=== PATIENT | male | born 2000 ===

== ENCOUNTER 2024-02-09 21:21 | Emergency (ER) | payer OTHER, SELFPAY ==
[2024-02-09 21:28] VITALS: BP 122/71
--- NOTE | 2024-02-09 22:17 | ED.GENMED ---
History of Present Illness
General
Chief Complaint: Fever
Source: patient
Exam Limitations: none
Time Seen by Provider: 02/09/24 21:56
Travel History
Have you had any contact with someone who has COVID-19?: No
Do you have any symptoms of coronavirus? Fever > 100 degrees, chills, cough, shortness of breath, sore throat, loss of taste or smell, muscle aches, or headache?: No
History of Present Illness
History of Present Illness:
This is a 23 year old male that comes in with c/o sore throat. States that he has had a sore throat for the past 2 days. State that he has felt warm and then cold but he did not take his temp. States that yesterday his mom gave him 'Taraflu' which
his mom gave him. States that it is a cough medication. States that he used Tylenol yesterday and today and just took Ibuprofen before coming to the hospital. States that he had chills yesterday and he has a headache. Denies any chest pain, SOB, abd
pain, nausea, vomiting, diarrhea, dizziness, urinary burning.
Past History
Past History
ED Past Medical History: None; Negative Asthma, HTN, Hypercholesterolemia or NIDDM
ED Past Surgical History: None
Social History
Tobacco: Non-smoker
Alcohol: None
Personal: Single
Living: with family
Review of Systems
Review of Systems
All Other Systems: ROS reviewed and negative except as documented in HPI and ROS
Constitutional: Reports other (felt hot and then cold but did not take his temp)
EENT: Reports sore throat
Respiratory: Reports no symptoms; Denies cough or trouble breathing
Cardiac: Reports no symptoms; Denies chest pain
ABD/GI: Reports no symptoms; Denies abdominal pain, nausea, vomiting or diarrhea
: Reports no symptoms; Denies dysuria, frequency or urgency
Musculoskeletal: Reports no symptoms
Skin: Reports no symptoms
Neurological: Reports headache; Denies dizzy
Psychiatric: Reports no symptoms
Phy Exam
General Physical Exam
General Presentation: no apparent distress
General age: appears stated age
General Skin: warm and dry
General Habitus: normal
General Mental: alert
General Hydration: appears well hydrated
ENT Exam
ENT Exam: TM's normal and pharyngeal erythema (Negative for any exudate)
Eye Exam
Eye Exam: EOMI
Cardiovascular Exam
Cardiovascular Exam: regular rate/rhythm, no edema, no murmur and normal peripheral pulses
Pulmonary Exam
Pulmonary Exam: lungs clear, no respiratory distress, no rales, chest non tender, no crackles, no rhonchi, no wheezing and no cough
Gastrointestinal Exam
Gastrointestinal Exam: normal bowel sounds, non tender, soft, no organomegaly, no pulsatile mass and non distended
Musculoskeletal Exam
Musculoskeletal Exam: full ROM (Patient walked back to room) and no edema
Skin Exam
Skin Exam: normal color, warm/dry, no rash and no petechia
Psychiatric Exam
Psychiatric Exam: normal mood/affect
Course
Orders/Labs/Results
Orders:
Orders
02/09/24 22:17
Dexamethasone Pf [Decadron] 10 mg PO NOW STA
02/09/24 22:19
COVID-19 Antigen Urgent
Source: Nasal Swab
Comment: ,
Monotest Urgent
02/09/24 22:23
Rapid Strep Group A Urgent
PRISCA Source: Throat/Pharynx
Specimen Description:
Date Specimen was Collected: 02/09/24
Time Specimen was Collected: 22:20
[facility] negative. COVID negative and rapid strep negative.
Vital Signs
Initial and Last Documented VS:
Initial Vital Signs
Temp Pulse Resp BP Pulse Ox
98.3 F 63 20 122/71 96
02/09/24 21:28 02/09/24 21:28 02/09/24 21:28 02/09/24 21:28 02/09/24 21:28
Last Documented Vital Signs
Temp Pulse Resp BP Pulse Ox
98.3 F 63 20 122/71 96
02/09/24 21:28 02/09/24 21:28 02/09/24 21:28 02/09/24 21:28 02/09/24 21:28
MDM/Problems Addressed
Differential Diagnosis Includes:
[facility], Strep. Viral syndrome
MDM/Problems Addressed:
This is a 23 year old male that comes in with c/o a sore throat for the past 2 days. States that he has taken Tylenol and Ibuprofen.
Will get COVID, Rapid strep, [facility].
Back into see patient. Explained that this is most likely a viral illness. Patient can gargle with warm salt water as this will kill the bacteria. Patient to use Ibuprofen 600mg every 6 hours and alternate with Tylenol for pain. Follow up with the
family doctor. Return with any concerns.
Chronic conditions affecting care:
NA
Acute Exacerbation and/or Progression of Chronic Illness:
NA
*Pulse Oximetry
Patient hypoxic: no
*EKG
Interpreted by ED Provider?: NA
Rate: EKG- N/A
*Visual Merchandising Manager Interpretation
Rate: Visual Merchandising Manager- N/A
*Critical Care Note
Total Time (30-74mins, 75-104mins- exclusive of procedures): Not Applicable
ED Attending Note
-
Portions of this chart may have been created with voice recognition software.� Occasional wrong word or��sound alike� substitutions may have occurred due to the inherent limitations of voice recognition software.
Discharge Plan
Departure
Patient Disposition: Home (Routine Discharge)
Date of Disposition: 02/09/24
Time of Disposition: 22:58
Patient with high blood pressure during this ER visit?: No
Condition: Good
Covid-19: Negative COVID-19
Discharge Problem:
Acute sore throat, Viral syndrome
Instructions: Viral Syndrome (DC), Sore Throat - Adult
Prescriptions:
No Action
No Current Medications
0
Referrals:
Radha Alex MD [Family Provider] - Call in 1-3 days for appt
Activity Restrictions/Additional Instructions:
As discussed, you are negative for COVID, [facility] and your rapid strep is negative. This is most likely a viral illness. You can gargle with warm salt water to help kill the bacteria. You may use Ibuprofen 600mg every 6 hours for pain and alternate
with Tylenol 1000mg every 6 hours. Follow up with the family doctor. IF YOU HAVE ANY OTHER CONCERNS PLEASE RETURN TO THE EMERGENCY ROOM.
Interventions
Interventions:
*Risk Screen - Suicide Last Done: 02/09/24 21:28
*General Assessment Last Done: 02/09/24 21:28
*Neglect/Abuse Screening Last Done: 02/09/24 21:28
ED- Fall Risk Assessment Last Done: 02/09/24 22:05
ED- Neurological Assessment Last Done: 02/09/24 22:05
ED-Skin Assessment Last Done: 02/09/24 22:05
Discharge Date and Time
Print Language: SLOVAK
[2024-02-09] MEDS: DECADRON 10 MG PO (22:36)
[2024-02-09 22:47] LABS: COVID-19 Antigen Negative (Negative)
[2024-02-09 22:52] LABS: Monotest Negative (Negative)
[2024-02-09 23:00] VITALS: BP 118/69
== END 2024-02-09 23:00 | disposition home or self-care (01) ==
LOC: EMR 21:21
PROVIDERS: Clinical Nurse Specialist Family Health; EMERGENCY PHYSICIAN Emergency Medicine; FAMILY PHYSICIAN Family Medicine
DX: B34.9 Viral infection, unspecified (principal); J02.9 Acute pharyngitis, unspecified; R51.9 Headache, unspecified; Z11.52 Encounter for screening for COVID-19
CPT/HCPCS: 99283; 86308; 87070; 87811; 87880

== ENCOUNTER 2024-05-13 20:53 | Emergency (ER) | payer SELFPAY ==
[2024-05-13 20:55] VITALS: BP 134/84
[2024-05-13 20:58] VITALS: BP 134/84
--- NOTE | 2024-05-13 23:24 | ED.GENMED ---
History of Present Illness
General
Chief Complaint: Skin Surface Trauma
Source: patient and spouse
Exam Limitations: none
Time Seen by Provider: 05/13/24 21:18
Nursing documentation reviewed up to this point in time: agreed with
History of Present Illness
History of Present Illness:
23-year-old male presenting to the emergency department today with concerns of a laceration to his right medial ankle region. He claims that this occurred when a mirror smashed and hit him in the ankle prior to arrival. Denies any numbness
weakness or additional concerns. Moderate bleeding from the area.
Past History
Past History
ED Past Medical History: None; Negative Asthma, HTN, Hypercholesterolemia or NIDDM
ED Past Surgical History: None
Social History
Tobacco: Non-smoker
Alcohol: None
Personal: Single
Living: with family
Review of Systems
Review of Systems
Allergies reviewed?: Yes
All Other Systems: ROS reviewed and negative except as documented in HPI and ROS
Phy Exam
Physical Exam
Physical Exam:
GENERAL: Alert , in no apparent distress
EYE: pupils equal and reactive
NECK: Supple, no significant adenopathy.
ENT: o/p clr, mmm.
CARDIAC: Regular rate and rhythm .
LUNGS: Clear breath sounds bilaterally, no acute respiratory distress, no wheezes/rales/rhonchi
ABDOMEN: Soft, without focal tenderness, no r/g, no cvat
NEUROLOGICAL: Alert and oriented, no focal neuro deficits
SKIN: X shaped laceration roughly 10 total centimeters in length. Subcutaneous in depth. No foreign body seen. Warm and dry, skin intact.
MUSCULOSKELETAL: No edema, well perfused.
PSYCH: Normal and appropriate interaction.
Course
Orders/Labs/Results
Orders:
Orders
05/13/24 23:26
Cephalexin Monohydrate [Keflex] 500 mg PO NOW STA
Tetanus/Diphth/Acelpertussis [Adacel] 0.5 ml IM .ONCE ONE
Vital Signs
Initial and Last Documented VS:
Initial Vital Signs
Temp Pulse Resp BP Pulse Ox
99.2 F 66 20 134/84 98
05/13/24 20:55 05/13/24 20:55 05/13/24 20:55 05/13/24 20:55 05/13/24 20:55
Last Documented Vital Signs
Temp Pulse Resp BP Pulse Ox
99.2 F 64 22 134/84 98
05/13/24 20:58 05/13/24 20:58 05/13/24 20:58 05/13/24 20:58 05/13/24 20:58
Procedures
Laceration Closure
Right Medial Ankle:
Status of Wound: clean
Size of Wound in cm: 10
Description of Wound Edges: surrounded by abrasion
Preparation: cleaned with saline
Anesthesia: 1% Lidocaine with epi
Revision/Debridement: minor revision and irrigate-direct pressure
Wound exploration: explored to base- no FB and no tendon involvement
Type of Closure: single layer closure and interrupted sutures
Skin Closure Material: 3-0 nylon
Number of sutures: 19
MDM/Problems Addressed
MDM/Problems Addressed:
23-year-old male presenting to the emergency department with concerns of a laceration to his right ankle that occurred from a mirror that smashed and hit him in the ankle prior to arrival. This was roughly 10 cm in total length closed with 19 total
nonabsorbable stitches. Advised to keep the area clean covered and will follow-up in 14 days for suture removal. Otherwise he was given antibiotics due to the large size to reduce risk of infection. Return precautions given.
*Critical Care Note
Total Time (30-74mins, 75-104mins- exclusive of procedures): Not Applicable
ED Attending Note
-
Portions of this chart may have been created with voice recognition software.� Occasional wrong word or��sound alike� substitutions may have occurred due to the inherent limitations of voice recognition software.
Discharge Plan
Departure
Patient Disposition: Home (Routine Discharge)
Date of Disposition: 05/13/24
Time of Disposition: 23:24
Patient with high blood pressure during this ER visit?: No
Condition: Good
Covid-19: Not Applicable
Discharge Problem:
Laceration of ankle, right
Instructions: Laceration Repair With Stitches (DC)
Prescriptions:
New
cephalexin 500 mg capsule
500 mg PO TID 3 Days Qty: 9 0RF
Activity Restrictions/Additional Instructions:
You came to the emergency department today with concerns of a laceration to your right ankle area. This was cleaned thoroughly and closed with 19 stitches. Please keep the area clean covered and take Keflex 3 times daily for the next 3 days to
reduce risk of infection. Return to the emergency department for any worsening, new or concerning symptoms.
Interventions
Interventions:
*Risk Screen - Suicide Last Done: 05/13/24 20:55
*General Assessment Last Done: 05/13/24 21:15
*Neglect/Abuse Screening Last Done: 05/13/24 20:55
ED- Fall Risk Assessment Last Done: 05/13/24 21:15
*ED COVID-19 Vaccine History Last Done: 05/13/24 21:15
*Nursing Disposition Last Done: 05/13/24 23:35
ED-Skin Assessment Last Done: 05/13/24 21:14
Discharge Date and Time
Discharge Date/Time: 05/13/24 23:38
Print Language: CHINESE
[2024-05-13] MEDS: KEFLEX 500 MG PO (23:29)
== END 2024-05-13 23:38 | disposition home or self-care (01) ==
LOC: EMR 20:53
PROVIDERS: EMERGENCY PHYSICIAN Emergency Medicine
DX: S91.011A Laceration without foreign body, right ankle, initial encounter (principal); W25.XXXA Contact with sharp glass, initial encounter
CPT/HCPCS: 12004; 99283; 90715

== ENCOUNTER 2024-05-29 21:39 | Emergency (ER) | payer SELFPAY ==
[2024-05-29 21:48] VITALS: BP 120/71
--- NOTE | 2024-05-29 23:37 | ED.GENMED ---
History of Present Illness
General
Chief Complaint: Skin Problem
Source: patient
Exam Limitations: none
Time Seen by Provider: 05/29/24 23:18
Nursing documentation reviewed up to this point in time: agreed with
History of Present Illness
History of Present Illness:
The patient is a 23-year-old man who suffered a laceraton to his medial left ankle on 05/13/2024. He was seen at [facility] emergency department and had sutures placed, and was given a tetanus and Keflex. Patient reports that the sutures were
removed about 1 week ago. Patient reports that over the last few days, the area is slightly red and his right ankle keeps getting swollen. Patient reports the pain seems to radiate up into his right calf.
Past History
Past History
ED Past Medical History: None
ED Past Surgical History: None
Social History
Tobacco: Non-smoker
Alcohol: None
Personal: Other
Living: with family
Employment: Other
Family History
Family History: Other
Review of Systems
Review of Systems
Allergies reviewed?: Yes
All Other Systems: ROS reviewed and negative except as documented in HPI and ROS
Constitutional: Reports no symptoms
EENT: Reports no symptoms
Respiratory: Reports no symptoms
Cardiac: Reports no symptoms
ABD/GI: Reports no symptoms
: Reports no symptoms
Musculoskeletal: Reports muscle stiffness (Right calf)
Skin: Reports other
Neurological: Reports no symptoms
Endocrine: Reports no symptoms
Hematologic/Lymphatic: Reports no symptoms
Psychiatric: Reports no symptoms
Phy Exam
Physical Exam
Physical Exam:
Physical Exam
General: no apparent distress, not acutely ill
Neck: supple.
Heart: s1/s2 regular rate and rhythm
Lungs: no acute respiratory distress.
Abdomen: Soft, nontender
Neuro: alert and oriented. no focal neurological deficits, 5 out of 5 strength in all extremities. Intact sensation throughout right foot, ankle and right lower leg
Skin: Scabbed over right medial ankle wound. Surrounding area is mildly warm and erythematous. Right ankle is slightly swollen. Full range of movement of right ankle without discomfort. No drainage from laceration
Psychiatric: well kept. interactive and cooperative
Extremities: no edema. Mild right calf tenderness. Strong pulses in right foot and ankle
Course
Orders/Labs/Results
Orders:
Orders
05/30/24 00:00
US Periph Venous LOWER Ext RT Urgent
Reason For Exam: right calf swelling
05/30/24 02:06
Apixaban [Eliquis] 5 mg PO NOW STA
Vital Signs
Initial and Last Documented VS:
Initial Vital Signs
Temp Pulse Resp BP Pulse Ox
98.3 F 68 18 120/71 98
05/29/24 21:48 05/29/24 21:48 05/29/24 21:48 05/29/24 21:48 05/29/24 21:48
Last Documented Vital Signs
Temp Pulse Resp BP Pulse Ox
98.3 F 68 18 120/71 98
05/29/24 21:48 05/29/24 21:48 05/29/24 21:48 05/29/24 21:48 05/29/24 21:48
MDM/Problems Addressed
Differential Diagnosis Includes:
Right ankle wound infection, right septic ankle, right DVT
MDM/Problems Addressed:
Patient presents with acute skin pain, redness and warmth of right ankle near wound
*Radiology
Radiology exam reviewed: radiology read reviewed
*Pulse Oximetry
Patient hypoxic: no
*Critical Care Note
Total Time (30-74mins, 75-104mins- exclusive of procedures): Not Applicable
Update Note
Update Note:
Patient remains well and comfortable appearing. He has no chest pain or shortness of breath to suggest PE. Patient strongly encouraged to call and [facility] tomorrow for follow-up. We did talk about the risk of starting blood thinners such
as more easily bleeding. Patient understands these risks. Patient reports he does not participate in contact sports.
ED Attending Note
-
Portions of this chart may have been created with voice recognition software.� Occasional wrong word or��sound alike� substitutions may have occurred due to the inherent limitations of voice recognition software.
Discharge Plan
Departure
Patient Disposition: Home (Routine Discharge)
Date of Disposition: 05/30/24
Time of Disposition: 01:51
Patient with high blood pressure during this ER visit?: Yes
Condition: Good
Covid-19: Not Applicable
Discharge Problem:
Acute deep vein thrombosis (DVT) of right lower extremity
Instructions: Taking oral medicines for blood clots, Deep Vein Thrombosis (DVT) ED, Managing increased bleeding risk
Prescriptions:
New
Eliquis DVT-PE Treat 30D Start 5 mg (74 tabs) tablets,dose pack
See Rx Instructions .ROUTE .COMPLEX Qty: 74 0RF
Rx Instructions:
orally per package directions
No Action
cephalexin 500 mg capsule
500 mg PO TID 3 Days Qty: 9 0RF
Referrals:
UNKNOWN - PT DOES,NOT KNOW [Family Provider] -
Activity Restrictions/Additional Instructions:
Please start taking the blood thinner immediately. Please call [facility] tomorrow to schedule an appointment to see as soon as possible. They can be reached at [phone]
Interventions
Interventions:
*Risk Screen - Suicide Last Done: 05/29/24 21:48
*General Assessment Last Done: 05/29/24 23:03
*Neglect/Abuse Screening Last Done: 05/29/24 21:48
*ED COVID-19 Vaccine History Last Done: 05/29/24 23:03
ED-Skin Assessment Last Done: 05/29/24 23:05
Discharge Date and Time
Print Language: AUSTRAL[place]
[2024-05-30] MEDS: ELIQUIS 5 MG PO (02:08)
[2024-05-30 02:23] VITALS: BP 138/76
== END 2024-05-30 02:29 | disposition home or self-care (01) ==
LOC: EMR 21:39
PROVIDERS: EMERGENCY PHYSICIAN Emergency Medicine
DX: I82.401 Acute embolism and thrombosis of unspecified deep veins of right lower extremity (principal); M25.471 Effusion, right ankle; M79.604 Pain in right leg; L53.9 Erythematous condition, unspecified; R03.0 Elevated blood-pressure reading, without diagnosis of hypertension; Z98.890 Other specified postprocedural states
CPT/HCPCS: 99284; 93971